=== PATIENT | female | born 1975 | race Caucasian/White ===

== ENCOUNTER → 2016-09-02 | Outpatient (CLI) | payer BC ==
--- NOTE | 2016-09-02 17:01 | PE ---
Nuclear medicine PET/CT HISTORY: Right neck mass Patient received 13.9 mCi F-18 FDG intravenously delayed scanning performed for skull base to the mid thighs. Localization and attenuation correction CT scan was performed. No comparisons Neck and chest: There is no evident adenopathy. No lung mass present. Patient shows bilateral breast prostheses. No mediastinal, axillary, or hilar adenopathy. No suspicious hypermetabolic uptake. Suspe ct there is uptake in the level of the sublingual glands. Ascending aorta measures 4.1 cm. Abdomen pelvis: No evident mass. No retroperitoneal adenopathy. No suspicious hypermetabolic uptake. Osseous structures: Unremarkable IMPRESSION: No suspicious hypermetabolic uptake or evident mass. There is no localization of mass on the patient's CT scan, consider dedicated contrast-enhanced CT of the neck with overlying BB to alejo the area of abnormality. Ascending aortic aneurysm. Additional findings above.
== END | disposition home or self-care (01) ==
LOC: RADPETMAIN 11:24
PROVIDERS: ATTEND Otolaryngology Otolaryngology/Facial Plastic Surgery
DX: R22.1 Localized swelling, mass and lump, neck (principal)
CPT/HCPCS: 78815; A9552

== ENCOUNTER 2021-08-26 06:07 | Day surgery (SDC) | payer BC ==
[2021-08-25 10:18] VITALS: BMI 21.6
[~2021-08-26 06:07] MED LIST: Pre Op ABX Message 1 EACH MISC MISCELLANE ONE
[2021-08-26] MEDS ORDERED: DEXAMETHASONE SOD PHOSPHATE 4 MG/ML 1 ML VIAL IV ONE (06:10)
[2021-08-26] MEDS ORDERED: LACTATED RINGERS 1,000 ML IV SCH (06:10)
[2021-08-26] MEDS ORDERED: HYDROmorphone 0.5 MG/0.5 ML SYRINGE IVP PRN (06:10)
[2021-08-26] MEDS ORDERED: ONDANSETRON 4 MG/2 ML VIAL IVP ONE (06:10)
[2021-08-26] MEDS ORDERED: MIDAZOLAM 2 MG/2 ML VIAL IV PRN (06:10)
[2021-08-26] MEDS ORDERED: LIDOCAINE 1% (10MG/ML) FOR IV START INTRADERMA PRN (06:10)
[2021-08-26] MEDS ORDERED: LACTATED RINGERS 1,000 ML IV ONE (06:50)
[2021-08-26] MEDS ORDERED: SCOPOLAMINE 1 MG/72 HR PATCH TRANSDERM ONE (07:00)
[2021-08-26] MEDS ORDERED: ROPIVACAINE 5 MG/ML 30 ML VIAL ONE (07:20)
[2021-08-26] MEDS ORDERED: GLYCOPYRROLATE 0.2 MG/ML 2 ML VIAL ONE (07:20)
[2021-08-26] MEDS ORDERED: LIDOCAINE 1% INJ 10MG/ML (20 ML MDV) ONE (07:20)
[2021-08-26] MEDS ORDERED: KETOROLAC 15 MG/ML 1 ML VIAL ONE (07:20)
[2021-08-26] MEDS ORDERED: PROPOFOL 10 MG/ML 20 ML VIAL IV ONE (07:20)
[2021-08-26] MEDS ORDERED: DEXAMETHASONE SOD PHOSPHATE 4 MG/ML 1 ML VIAL ONE (07:20)
[2021-08-26] MEDS ORDERED: SODIUM CHLORIDE 0.9% 100 ML with ceFAZolin 2,000 MG IV ONE ×2 (07:35)
[2021-08-26 08:59] VITALS: TEMP 98.4
--- NOTE | 2021-08-26 09:11 | P.OP ---
Date of Procedure: 08/26/21 Preoperative Diagnosis: Hallux valgus left foot Postoperative Diagnosis: Same Procedure(s) Performed: Lapidus bunionectomy left foot Implants: Lapiplasty plates and screws Anesthesia: GIULIA Surgeon: Vazquez Wheatley Estimated Blood Loss (ml): 10 Pathology: none sent Condition: stable Disposition: PACU Description of Procedure: Prior to the patient being brought to the operating room, anesthesia administered a nerve block and left lower extremity. Then the patient was brought into the operative room placed on table supine position. Timeout was taken to confirm correct patient identifiers, correct procedure, and correct site of surgery. When all staff in the room were in agreement with the timeout the patient was induced placed under general anesthesia. A well-padded tourniquet was placed on the ankle. The foot was then prepped and draped in us ual manner. The foot was exsanguinated and the tourniquet inflated 250 mmHg. Attention was directed over the medial aspect of the first metatarsal phalangeal joint where a linear incision was made between the neurovascular structures. The incision was deepened down to the saphenous layer careful to identify, avoid, and retract any neurovascular structures and cauterize any bleeding vessels. Dissection was then carried down to the joint capsule where 2 semi- elliptical converging incisions were made along the medial aspect of the first metatarsal phalangeal joint capsule. The interposing piece of capsule was removed from the surgical field and the capsule reflected from medial aspect of first metatarsal head. The sesamoid apparatus was distracted plantarly in the lateral sesamoid collateral ligament was transected and lateral capsulotomy performed. Then attention was directed to the dorsal aspect of the foot over the first tarsometatarsal joint. A linear incision was made medial to the extensor hallucis longus tendon with the center of the incision over the first tarsometatarsal joint. The incision was deepened down to the subcutaneous tissue careful to identify, avoid, and retract any neurovascular structures and cauterize any bleeding vessels. Blunt dissection was then carried down to the joint capsule which was incised medial to the extensor hallucis longus tendon area and subperiosteal dissection was performed to reflect the soft tissue away from the joint. An osteotome was used to free the soft tissue from around the joint surfaces to help mobilize the frontal plane correction. The guidewires and placed through the base of the first metatarsal from medial to lateral. This was used as a joystick for the frontal plane rotation correction. Small fulcrum was placed at the base of the first metatarsal, the joint seeker was also placed at the first tarsometatarsal joint as far lateral as possible. And then the reduction clamp was applied around the first metatarsal and lateral to the second metatarsal. While holding the frontal plane correction the reduction clamp was reduced close the intermetatarsal angle. Once the amount of correction was except while under fluoroscopy for wire was placed to the reduction clamp to lock the correction in place. The cutting guide was then placed over the joint seeker then held in place with 2 straight pins and then one ankle pin so it did not slide dorsally. The bone cuts were then made to the cutting jig. Cutting jig was removed, leaving the [address], as was the joint seeker fulcrum. The compression/distraction devices then placed over the remaining wires and then opened to allow access to the cut surfaces of bone. Both cut surfaces were removed fully with no remaining pieces. The wound is then irrigated thoroughly with antibiotic saline. Then a 2.0 mm drill bit was used to aggressively fenestrate the conjoining surfaces of the arthrodesis site. The fulcrum was reinserted at the base of the first metatarsal and the lateral aspect. Then the distraction device was reversed a compression and while holding the great toe dorsiflexed the arthrodesis site was compressed full y. Fluoroscopy was used to check the alignment which showed full compression at the arthrodesis site with maintain correction intermetatarsal angle and anatomic alignment of the sesamoid. A Threaded olive wire was then inserted across the arthrodesis site for temporary fixation. The medial plate was applied first it was aligned under fluoroscopy and then temporarily fixated. The 2 screw holes closest to the arthrodesis site were filled with the compression/locking screws until they were fully seated the outer 2 screws were done with straight locking screws. The dorsal straight plate was then positioned under fluoroscopy until correct and then temporarily fixated. The 2 holes closest the arthrodesis site were filled with the compression/locking screw in the outer holes of the straight locking screws. All extraneous instrumentation was removed and then a final fluoroscopic imaging showed full correction intermetatarsal angle proper placement of hardware there is no gapping at the arthrodesis site the sesamoids are anatomically aligned. All wounds were thoroughly irrigated with antibiotic saline. Capsular closure was done with 0 Vicryl in both incisions. All incisions were closed subcutaneously with 4-0 Monocryl. The large dorsal and medial incisions were closed with 3-0 Stratafix in a running subcuticular manner for skin. Dermal glue was applied to all the incisions and allowed to dry. Steri-Strips are then placed across incision and covered with an Arthrex jumpstart dressing. A bulky dry dressings applied to foot. The tourniquet was released capillary refill return to all digits on the foot. The patient then placed in a well-padded, well molded posterior mold/sugar tong splint. The foot was held in neutral position as it dried. Once dry, the patient was reversed from general anesthesia and taken recovery with vital signs stable.
[2021-08-26] MEDS ORDERED: IV FLUID CONTINUATION 1,000 ML IV ONE (09:41)
[2021-08-26 10:03] VITALS: RESP 18
[2021-08-26 10:22] VITALS: BP 110/75; PULSE 48
--- NOTE | 2021-08-26 10:56 | P.ANPRN ---
Procedure Note - Anesthesia - Nerve Block Performed Left Adductor Canal Single Time Out Performed: Yes (0708) Date of Procedure: 08/26/21 Procedure Start Time: 07:08 Procedure Stop Time: 07:14 Location of Patient: PreOp Indication: Acute Post-Operative Pain, Dx/Pain Location (Left foot), Requested by Surgeon Specifically requested for management of pain by DrTim: Vazquez Wheatley Sedation Type: Sedate with meaningful contact maintained Preparation: Sterile Prep Position: Supine Catheter: None Needle Types: Pajunk Needle Gauge: 21 (100 mm) Ultrasound used to visualize needle placement: Yes Ultrasound used to observe medication spread: Yes Injectate: 0.5% Ropivacaine (see comment for volume) (10cc + 2mg of decadron) Blood Aspirated: No Pain Paresthesia on Injection Noted: No Resistance on Injection: Normal Image Stored and Saved: Yes Events: Uneventful and Well Tolerated Left Popliteal Single Time Out Performed: Yes Date of Procedure: 08/26/21 Procedure Start Time: 07:15 Procedure Stop Time: 07:19 Location of Patient: PreOp Indication: Acute Post-Operative Pain, Dx/Pain Location (Left foot), Requested by Surgeon Specifically requested for management of pain by Dr.: Vazquez Wheatley Sedation Type: Sedate with meaningful contact maintained Preparation: Sterile Prep Position: Right Lateral Catheter: None Needle Types: Pajunk Needle Gauge: 21 (100 mm ) Ultrasound used to visualize needle placement: Yes Ultrasound used to observe medication spread: Yes Injectate: 0.5% Ropivacaine (see comment for volume) (20 cc + 2mg of decadron) Blood Aspirated: No Pain Paresthesia on Injection Noted: No Resistance on Injection: Normal Image Stored and Saved: Yes Events: Uneventful and Well Tolerated
== END 2021-08-26 10:44 | disposition home or self-care (01) ==
LOC: OR 06:07
PROVIDERS: ATTEND Podiatrist
DX: M20.12 Hallux valgus (acquired), left foot (principal); Z85.3 Personal history of malignant neoplasm of breast
CPT/HCPCS: 28292; 64447; 64999; 76942; C1713; J2250; J1100; J2405; J0690; J2001; J2795; J1885; J2704; J1170; J1790